=== PATIENT | male | born 1990 | race Caucasian/White ===

== ENCOUNTER 2017-03-01 14:06 | Emergency (ER) | payer SELFPAY ==
[~2017-03-01] VITALS: Ht 167.6 cm; Wt 52.2 kg
[~2017-03-01 14:06] MED LIST: ALPR0.5T PO; DEXL30CA3 PO; ESCI10TA PO; LAMO50TA PO; ONDA8TAB9 PO
[2017-03-01 14:20] VITALS: BP 117/69
[2017-03-01] MEDS ORDERED: TDAP [DIPH/PERTUSSIS/TET] 0.5 ML VIAL IM ONE ×2 (14:30→14:55)
--- NOTE | 2017-03-01 14:53 | NUR ---
RADIOLOGY AT BEDSIDE FOR R HEEL XRAY.
--- NOTE | 2017-03-01 15:24 | NUR ---
NASRA BANDAGE APPLIED. Crutches dispensed. Pt instructed on proper use of crutches. Patient able to demonstrate correct use of crutches.Patient discharged to home in stable condition. Written and verbal after care instructions given. Patient verbalizes understanding of instruction.
== END 2017-03-01 15:33 | disposition home or self-care (01) ==
LOC: ER 14:13
DX: S90.31XA Contusion of right foot, initial encounter (principal); S50.01XA Contusion of right elbow, initial encounter; F32.9 Major depressive disorder, single episode, unspecified; F17.200 Nicotine dependence, unspecified, uncomplicated; Z23 Encounter for immunization; V00.131A Fall from skateboard, initial encounter; Y93.51 Activity, roller skating (inline) and skateboarding; Y92.89 Other specified places as the place of occurrence of the external cause; Y99.9 Unspecified external cause status
CPT/HCPCS: 73650-TC; 90715; A4606; Z7610